=== PATIENT | male | born 2000 | race Caucasian/White ===

== ENCOUNTER → 2022-12-11 09:09 | Outpatient (BNVA) | payer MEDICAID, SELFPAY | PROVIDERS: PCP Internal Medicine Geriatric Medicine; Visit Provider Urology | DX: N47.1 Phimosis (principal); N48.1 Balanitis; R80.9 Proteinuria, unspecified | CPT/HCPCS: 99202 ==

== ENCOUNTER 2023-01-12 05:50 | Day surgery (SDC) | payer MEDICAID, SELFPAY ==
[2023-01-08 14:55] VITALS: BMI 25.7
--- NOTE | 2023-01-11 10:16 | HO.ANESPROP2 ---
Documented by User: Urmila Maher NP 01/11/23 10:16 HPI - Anesthesia Eval Consult details Narrative: 22yo M for Circumcision PMFSH Active Problems Active Problems: All Active Problems (Updated 12/11/22 @ 10:28 by Hiren López) Proteinuria (Acute) Balanitis (Acute) Phimosis of penis (Acute) Past Medical History Medical History Phimosis of penis Family History Family History Father Medical history unknown Mother Medical history unknown Surgical History Surgical History No pertinent past surgical history Social History Social History Alcohol intake: never Patient Tobacco Use Status: Never used Tobacco Substance Use Frequency: Daily Are you DNR?: No Advance Directives: No Advance Directives Information Provided: Yes Nutrition Risks: No Nutritional Risk Meds Allergies Allergy/AdvReac Type Severity Reaction Status Date / Time No Known Allergies Allergy Verified 01/12/23 06:10 [No Known Allergies*] Exam Exam Date and Time: January 11, 2023 1016 Height,Weight and Vital Signs: Height 5 ft 11 in Weight 83.461 kg Assessment and Plan Assessment Anesthesia Assessment: Chart Reviewed Documented by User: Debra Brody MD 01/12/23 07:06 PMFSH Past Medical History Medical History Phimosis of penis Family History Family History Father Medical history unknown Mother Medical history unknown Family history of problems with anesthesia: No Surgical History Surgical History No pertinent past surgical history History of Problems with Anesthesia: No Social History Social History Alcohol intake: never Patient Tobacco Use Status: Never used Tobacco Substance Use Frequency: Daily Are you DNR?: No Advance Directives: No Advance Directives Information Provided: Yes Nutrition Risks: No Nutritional Risk Meds Allergies Allergy/AdvReac Type Severity Reaction Status Date / Time No Known Allergies Allergy Verified 01/12/23 06:10 [No Known Allergies*] Exam Airway Mallampati Class: I TM Dist: >3cm Neck ROM: Full Assessment and Plan Assessment Anesthesia Assessment: Anesthesia Plan Discussed Final Anesthetic Review Family History of Problems with Anesthesia: No History of Problems with Anesthesia: No NPO: Yes ASA Class: II Final Preanesthetic Review: No Changes in Pt Med Stat, Meds/Allgs Chart Reviewed, Consent Obtained/Reviewed and Anes Risks/Benef Reviewed Patient Risk: Low Procedure Risk: Low Anesthetic Plan Anesthetic Plan: GA Disposition: Standard PACU
[2023-01-12] MEDS: Lactated Ringers 1,000 ML 100 ML IVCONT (06:18)
[2023-01-12 06:27] VITALS: BP 136/97; PULSE 83; RESP 18; TEMP 36.7; O2SAT 98
--- NOTE | 2023-01-12 07:04 | MHC.SHP ---
Pre-Procedural Eval Section A Date of Service: 01/12/23 The patient is an INPATIENT: No The History & Physical has been completed within 30 days and I have reviewed it.: No Section B Chief Complaint: Phimosis Details of Present Illness: Slick complains of persistent irritation to foreskin and pain with intercourse. Relevant Family History (Specify if Yes): No Relevant Social History: None Present Medications: see Short Stay Collaborative assessment Medical History: No relevant PMH History of Previous Operations: No relevant previous surgery Allergies: Allergies Allergy/AdvReac Type Severity Reaction Status Date / Time No Known Allergies Allergy Verified 01/12/23 06:10 [No Known Allergies*] Review of Systems Review of Systems Comment: 10 point ROS negative other than stated in HPI Exam Surgical H&P Exam: Normal: HEENT, Normal: Heart, Normal: Lungs, Normal: Abdomen and Normal: Neurological Plan Diagnosis/Plan: Unchanged I have reviewed the history and physical and performed a pertinent physical examination on my patient. No changes have occurred unless specified. Circumcision Time Spent With Patient Time: Total time managing care of this patient today ____ minutes.
[2023-01-12 09:35] VITALS: BP 136/90; PULSE 86; RESP 16; TEMP 36.6; O2SAT 98
--- NOTE | 2023-01-12 09:39 | W.PM.OPN ---
Operative Note Operative Note Date of Service: 01/12/23 Narrative: PreOperative Diagnosis:? ? Balanitis, phimosis Post Operative Diagnosis:?Balanitis, phimosis Procedure:?Circumcision Surgeon:?Dr Nicholas Wong Anesthesia:? General Procedure: After informed consent was verified the patient was brought to the operating room and placed in a supine position.? Anesthesia was performed per protocol. The patient was prepped and draped in the usual sterile fashion. Safety pause time-out was performed. Antibiotics confirmed. Penile block with 0.5% Marcaine, was performed. With the foreskin over the glans a circumferential incision is made at the level of the marshall. The fore skin was then retracted and a circumferential incision was made 0.5 cm below the marshall. The foreskin is removed with cautery. The skin is closed in 4 quadrants with 4-0 chromic, each quadrant closed with interrupted 4-0 chromic, bacitracin ointment was used over the incision and incision covered with cling. The patient tolerated the procedure well and was transferred to the recovery area upon completion. Complications: None
[2023-01-12 09:40] VITALS: BP 134/73; PULSE 98; RESP 19; O2SAT 97
[2023-01-12 09:45] VITALS: BP 131/82; PULSE 107; RESP 18; O2SAT 99
[2023-01-12] MEDS: oxyCODONE HCl Immed Release 5 MG TABLET PO (09:46)
[2023-01-12 09:50] VITALS: BP 147/97; PULSE 94; RESP 18; O2SAT 99
[2023-01-12 10:05] VITALS: BP 148/96; PULSE 89; RESP 18; TEMP 36.2; O2SAT 99
== END 2023-01-12 10:35 | disposition home or self-care (01) ==
PROVIDERS: Visit Provider Urology
PROC: (CPT 54161; principal; 2023-01-12 07:30)
DX: N47.1 Phimosis (principal); N48.1 Balanitis; R80.9 Proteinuria, unspecified
CPT/HCPCS: 54161; 88304; 88342; J0690; J2250; J2795; J3010

== ENCOUNTER → 2023-01-19 10:34 | Outpatient (BNVA) | payer MEDICAID, SELFPAY | PROVIDERS: Visit Provider Urology ==

== ENCOUNTER 2023-07-29 13:19 | Outpatient (AMB) | payer MEDICAID, SELFPAY ==
--- NOTE | 2023-07-29 13:48 | A.OFFVIS_ITS ---
Intake Intake Visit Reasons: Post-Op Circumcision Intake Note: Patient presents today for POST-OP follow-up Circumcision: Meds- None Allergies to Antibiotic- No Known Allergies Blood Thinner- None Yarn Weight And Strength Tester Required: No Accompanied by: Self / Same As Patient Allergies No Known Allergies [No Known Allergies*] Allergy (Verified 01/12/23 06:10) Medication List - Last Reconciled 07/29/23 by Nicholas Wong MD clotrimazole-betamethasone 1-0.05 % 1 appl topical BID Referred by: Primary Care Physician Chepe May MD HPI HPI Comments History of Present Illness Details Slick is a 23 year old male who is s/p circumcision 01/12/23, he missed scheduled post op appointment because he stated he was doing well. He was called to schedule follow up to discuss path results. Foreskin - high grade squamous intraepithelial lesion. I discussed that he needs to have STD screening and that I want him to return to office for fu exam. Also discussed that his partner needs to have PAP screening. Plan STD screening [facility] Medical History (Updated 07/29/23 @ 19:40 by Nicholas Wong MD) Phimosis of penis Surgical History (Updated 07/29/23 @ 13:55 by FERNANDO Ponce) Hx of circumcision Family History Father Medical history unknown Mother Medical history unknown Social History Alcohol intake: never Patient Tobacco Use Status: Never used Tobacco Review of Systems Const All systems reviewed & are unremarkable except as noted in HPI and below Reports no additional complaints Eyes Reports no additional complaints ENT Reports no additional complaints Card Denies dyspnea Resp Denies cough and Denies dyspnea GI Reports no additional complaints Musc Reports no additional complaints Skin/Breast Denies rash and Denies unusual bruising Neuro Reports no additional complaints Psych Reports no additional complaints Endo Reports no additional complaints Herson/Lymph Reports no additional complaints Aller/Immun Reports no additional complaints Results Reviewed Results Reviewed: Collected: 01/12/23 Location: [facility] Received: 01/12/23 Diagnosis Foreskin, circumcision: -High grade squamous intraepithelial lesion (moderate dysplasia, multiple foci, see comment). -Skin with acute and chronic inflammation, focal dermal hyalinization, and epidermal hyperplasia and hyperkeratosis, consistent with phimosis Assessment & Plan Assessment & Plan (1) Possible exposure to STD: Code(s): Z20.2 - Contact with and (suspected) exposure to infections with a predominantly sexual mode of transmission (2) Phimosis of penis: Code(s): N47.1 - Phimosis Plan STD screening FU for in office exam Orders: Orders HIV Ab/Ag 07/30/23 Z11.3 - Encounter for screening for infections with a predominantly sexual mode of transmission Syphilis Screen 07/30/23 Z11.3 - Encounter for screening for infections with a predominantly sexual mode of transmission Hepatitis C Antibody 07/30/23 Z20.2 - Contact with and (suspected) exposure to infections with a predominantly sexual mode of transmission Herpes Simplex Virus Ab IgG 07/30/23 Z20.2 - Contact with and (suspected) exposure to infections with a predominantly sexual mode of transmission Hepatitis B Surface Antigen 07/30/23 Z20.2 - Contact with and (suspected) exposure to infections with a predominantly sexual mode of transmission Telehealth Telehealth Location of provider rendering services: practice address Location of patient: address on file Patient Identification confirmed using: Name, : Yes Telehealth method: voice only Patient verbally consented to treatment: Yes Patient verbally consented to billing insurance company: Yes Patient informed of any privacy concerns related to visit: Yes Minutes spent on Phone/Video with Pt.: 18 Coding Level of Care Code Tele Est Pt Level 4 (17437) Diagnoses Possible exposure to STD Z20.2 Phimosis of penis N47.1
== END 2023-07-29 13:40 ==
PROVIDERS: PCP Internal Medicine Geriatric Medicine; Referring Provider Internal Medicine Geriatric Medicine; Visit Provider Urology
DX: N47.1 Phimosis (principal); Z20.2 Contact with and (suspected) exposure to infections with a predominantly sexual mode of transmission
CPT/HCPCS: 99214

== ENCOUNTER → 2023-07-29 13:19 | Outpatient (BNVA) | payer MEDICAID, SELFPAY | PROVIDERS: Visit Provider Urology ==

== ENCOUNTER 2023-07-30 08:52 | Outpatient (REF) | payer MEDICAID, SELFPAY ==
[2023-07-30 11:15] LABS: HBsAGNum1 0.28 S/CO (0.00-0.99); HIV AB/AG Nonreactive (Nonreactive); HIV Num 1 0.06 S/CO (0.00-0.99); Hepatitis B Surface Antigen Negative (Negative); ~Hepatitis C Antibody Nonreactive (Nonreactive)
[2023-07-30 11:16] LABS: Syphilis Screen Nonreactive (Nonreactive)
[2023-08-03 18:08] LABS: Herpes Simplex Type 2 IgG <0.90 index
== END 2023-07-30 08:53 | disposition home or self-care (01) ==
LOC: HO.LAB 08:52
PROVIDERS: PCP Nurse Practitioner Primary Care; Visit Provider Urology
DX: Z11.3 Encounter for screening for infections with a predominantly sexual mode of transmission (principal); Z11.4 Encounter for screening for human immunodeficiency virus [HIV]; Z20.2 Contact with and (suspected) exposure to infections with a predominantly sexual mode of transmission
CPT/HCPCS: 36415; 86695; 86696; 86780; 86803; 87340; 87389

== ENCOUNTER 2023-09-13 08:22 | Outpatient (AMB) | payer MEDICAID, SELFPAY ==
--- NOTE | 2023-09-13 08:42 | A.OFFVIS_ITS ---
Intake Intake Visit Reasons: 6w follow up Intake Note: Patient presents today for 6 months POST-OP follow-up Circumcision: Meds- None Allergies to Antibiotic- No Known Allergies Blood Thinner- None Auditor Appraiser Required: No Accompanied by: Self / Same As Patient Allergies No Known Allergies [No Known Allergies*] Allergy (Verified 01/12/23 06:10) Referred by: Primary Care Physician Chepe May MD HPI HPI Comments History of Present Illness Details 09/13/23--Aleks is here for follow up. I have reviewed STD work up. HIV, Hep C, Syphillis and Herpes II all were negative. Herpes I was reative. The patient states that his significant other has had normal pap smears. On exam: penis and scrotum were within normal limits. penile glans no suspicious lesions, circumcision incision area, shaft no lesions visualized. LV--07/29/23--Slick is a 23 year old male who is s/p circumcision 01/12/23, he missed scheduled post op appointment because he stated he was doing well. He was called to schedule follow up to discuss path results. Foreskin - high grade squamous intraepithelial lesion. I discussed that he needs to have STD screening and that I want him to return to office for fu exam. Also discussed that his partner needs to have PAP screening. Plan FU prn. He is to call for any new lesions on genitalia [facility] Medical History (Updated 09/13/23 @ 09:31 by Nicholas Wong MD) Phimosis of penis Surgical History Hx of wisdom tooth extraction Hx of circumcision Family History Father Medical history unknown Mother Medical history unknown Social History Alcohol intake: never Patient Tobacco Use Status: Never used Tobacco Review of Systems Const All systems reviewed & are unremarkable except as noted in HPI and below Reports no additional complaints Eyes Reports no additional complaints ENT Reports no additional complaints Card Denies dyspnea Resp Denies cough and Denies dyspnea GI Reports no additional complaints Musc Reports no additional complaints Skin/Breast Denies rash and Denies unusual bruising Neuro Reports no additional complaints Psych Reports no additional complaints Endo Reports no additional complaints Herson/Lymph Reports no additional complaints Aller/Immun Reports no additional complaints Physical Exam Const General: healthy appearing, no acute distress and well developed Orientation/consciousness: patient oriented x3 HEENT Head: Yes normocephalic and Yes atraumatic Eyes Conjunctivae: conjunctivae normal Neck Neck: Yes normal visual inspection Chest Chest palpation & inspection: normal inspection of the chest Resp Effort & Inspection: normal respiratory effort Cardio Rate: regular rate GI Inspection: Yes normal to inspection Palpation (GI): Soft to palpation Penis: normal penis Scrotum: scrotum normal Skin General skin exam: no rashes or lesions noted Neuro General: patient oriented x3 Extrem General: No pedal edema Psych Appearance: grossly normal Affect: normal affect Results Reviewed Results Reviewed: Collected: 01/12/23 Location: [facility] Received: 01/12/23 Diagnosis Foreskin, circumcision: -High grade squamous intraepithelial lesion (moderate dysplasia, multiple foci, see comment). -Skin with acute and chronic inflammation, focal dermal hyalinization, and epidermal hyperplasia and hyperkeratosis, consistent with phimosis. Comment: The margins cannot be evaluated as lesions were not grossly identified before sectioning. No high grade dysplasia is seen with cautery artifact Assessment & Plan Assessment & Plan (1) Possible exposure to STD: Code(s): Z20.2 - Contact with and (suspected) exposure to infections with a predominantly sexual mode of transmission (2) Follow-up after circumcision: Code(s): Z09 - Encounter for follow-up examination after completed treatment for conditions other than malignant neoplasm Plan FU prn. He is to call for any new lesions on genitalia Orders: Orders AMB Urinalysis Automated Today Z13.9 - Encounter for screening, unspecified Coding Level of Care Code Est Pt Level 3 (05761) Diagnoses Possible exposure to STD Z20.2 Follow-up after circumcision Z09
== END 2023-09-13 09:10 | disposition home or self-care (01) ==
PROVIDERS: PCP Nurse Practitioner Primary Care; Referring Provider Nurse Practitioner Primary Care; Visit Provider Urology
DX: Z20.2 Contact with and (suspected) exposure to infections with a predominantly sexual mode of transmission (principal); Z09 Encounter for follow-up examination after completed treatment for conditions other than malignant neoplasm
CPT/HCPCS: 99213

== ENCOUNTER → 2023-09-13 08:22 | Outpatient (BNVA) | payer MEDICAID, SELFPAY | PROVIDERS: PCP Nurse Practitioner Primary Care; Visit Provider Urology | DX: Z09 Encounter for follow-up examination after completed treatment for conditions other than malignant neoplasm (principal); Z20.2 Contact with and (suspected) exposure to infections with a predominantly sexual mode of transmission | CPT/HCPCS: 99212 ==